=== PATIENT | male | born 1995 ===

== ENCOUNTER → 2016-05-18 | Outpatient (CLI) | payer BC ==
--- NOTE | 2016-05-18 15:09 | DIAGNOSTIC IMAGING REPORT ---
RIGHT WRIST SINGLE VIEW CLINICAL HISTORY: Right wrist pain COMPARISON: None. DISCUSSION: A single carpal tunnel view is provided for interpretation. No fractures are visualized on this single projection. IMPRESSION: No fractures identified on this single carpal tunnel projection Electronically signed by: Benny Steen M.D. 05/18/2016 3:08 PM Dictated Date/Time: 05/18/2016 3:07 PM
== END | disposition home or self-care (01) ==
LOC: C.RDSM 14:55
PROVIDERS: ATTEND Internal Medicine
DX: M25.531 Pain in right wrist (principal)

== ENCOUNTER → 2016-06-01 | Outpatient (CLI) | payer BC ==
--- NOTE | 2016-06-01 13:27 | DIAGNOSTIC IMAGING REPORT ---
RIGHT WRIST MIN 3 VIEWS ROUTINE CLINICAL HISTORY: Right wrist fracture COMPARISON: 05/18/2016 DISCUSSION: No fractures or dislocations are visualized. IMPRESSION: No fractures are visualized on conventional radiographic imaging Electronically signed by: Benny Steen M.D. 06/01/2016 1:25 PM Dictated Date/Time: 06/01/2016 1:24 PM
== END | disposition home or self-care (01) ==
LOC: C.RDSM 13:06
PROVIDERS: ATTEND Internal Medicine
DX: S62.101A Fracture of unspecified carpal bone, right wrist, initial encounter for closed fracture (principal); X58.XXXA Exposure to other specified factors, initial encounter